=== PATIENT | female | born 1970 | race Caucasian/White ===

== ENCOUNTER 2024-03-04 14:01 | Emergency (ER) | payer MEDICAID ==
[~2024-03-04] VITALS: Ht 165.1 cm; Wt 74.8 kg
[2024-03-04 14:07] VITALS: BP_SYST 169; PULSE 104; RESP 18; TEMP 98.3; O2SAT 98
[2024-03-04 16:06] LABS: CALCIUM 8.8 mg/dL (8.4-11.0); CREATININE 0.98 mg/dL (0.55-1.30); POTASSIUM 3.9 mmol/L (3.5-5.1)
[2024-03-04 16:10] LABS: BASOPHILS # (AUTO) 0.1 K/uL (0.0-0.2); BASOPHILS % (AUTO) 1.5 % (0.0-2.0); EOSINOPHILS # (AUTO) 0.1 K/uL (0.0-0.4); HEMATOCRIT 24.7 % (36-48); HEMOGLOBIN 7.3 g/dL (12.0-16.0); LYMPHOCYTES # (AUTO) 2.2 K/uL (1.0-5.5); LYMPHOCYTES % (AUTO) 33.4 % (20.5-51.5); MEAN CORPUSCULAR HEMOGLOBIN 19 pg (27-31); MEAN CORPUSCULAR HGB CONC 30 % (32-36); MEAN CORPUSCULAR VOLUME 66 fL (79.0-98.0); MONOCYTES # (AUTO) 0.4 K/uL (0.0-1.0); MONOCYTES % (AUTO) 6.6 % (1.7-9.3); NEUTROPHILS # (AUTO) 3.8 K/uL (1.8-7.7); NEUTROPHILS % (AUTO) 56.5 % (40.0-70.0); PLATELET COUNT (AUTO) 375 K/uL (130-430); RED BLOOD CELL COUNT(AUTO) 3.77 MIL/uL (4.2-6.2); RED CELL DISTRIBUTION WIDTH 23.1 % (9.0-15.0); WHITE BLOOD COUNT (AUTO) 6.7 K/uL (4.8-10.8)
[2024-03-04] MEDS ORDERED: NEOM15CR TP (16:48)
[2024-03-04 17:13] VITALS: BP_SYST 152; PULSE 104; RESP 18; TEMP 98.3; O2SAT 98
== END 2024-03-04 16:30 | disposition home or self-care (01) ==
LOC: SED 14:01
DX: S51.832A Puncture wound without foreign body of left forearm, initial encounter (principal); E11.9 Type 2 diabetes mellitus without complications; W57.XXXA Bitten or stung by nonvenomous insect and other nonvenomous arthropods, initial encounter; Y93.89 Activity, other specified; Y92.89 Other specified places as the place of occurrence of the external cause; Y99.8 Other external cause status
CPT/HCPCS: 36415; 73090; 80048; 83605; 85025; 99284

== ENCOUNTER 2024-07-13 06:54 | Emergency (ER) | payer MEDICAID ==
[~2024-07-13] VITALS: Ht 162.6 cm; Wt 81.6 kg
[~2024-07-13 06:54] MED LIST: NEOM15CR TP
[2024-07-13 07:18] VITALS: BP_SYST 147; PULSE 120; RESP 18; TEMP 98.3; O2SAT 98
[2024-07-13 07:51] LABS: BASOPHILS # (AUTO) 0.1 K/uL (0.0-0.2); BASOPHILS % (AUTO) 1.1 % (0.0-2.0); EOSINOPHILS # (AUTO) 0.1 K/uL (0.0-0.4); EOSINOPHILS % (AUTO) 0.5 % (0.0-4.0); HEMATOCRIT 26.4 % (36-48); HEMOGLOBIN 7.7 g/dL (12.0-16.0); LYMPHOCYTES # (AUTO) 2.1 K/uL (1.0-5.5); LYMPHOCYTES % (AUTO) 15.6 % (20.5-51.5); MEAN CORPUSCULAR HEMOGLOBIN 19 pg (27-31); MEAN CORPUSCULAR HGB CONC 29 % (32-36); MEAN CORPUSCULAR VOLUME 65 fL (79.0-98.0); MONOCYTES # (AUTO) 0.9 K/uL (0.0-1.0); NEUTROPHILS # (AUTO) 10.2 K/uL (1.8-7.7); NEUTROPHILS % (AUTO) 75.8 % (40.0-70.0); PLATELET COUNT (AUTO) 356 K/uL (130-430); RED BLOOD CELL COUNT(AUTO) 4.06 MIL/uL (4.2-6.2); RED CELL DISTRIBUTION WIDTH 20.4 % (9.0-15.0); WHITE BLOOD COUNT (AUTO) 13.5 K/uL (4.8-10.8)
[2024-07-13 08:37] LABS: INR 1.1 (0.8-1.2); PROTHROMBIN TIME 11.7 SECS (9.5-12.5)
[2024-07-13 08:57] LABS: CALCIUM 8.4 mg/dL (8.4-11.0); CREATININE 1.12 mg/dL (0.55-1.30); POTASSIUM 3.1 mmol/L (3.5-5.1)
[2024-07-13] MEDS ORDERED: CLIN300C3 PO (09:18)
[2024-07-13] MEDS ORDERED: IBUP-1969 PO (09:18)
[2024-07-13] MEDS: HYDROcodone/ACETAMIN 10-325 MG TAB PO ONE (09:34)
[2024-07-13 09:40] VITALS: BP_SYST 147; PULSE 120; RESP 18; TEMP 98.3; O2SAT 98
[2024-07-13 10:37] LABS: ANISOCYTOSIS 1+; HYPOCHROMASIA 2+
== END 2024-07-13 07:18 | disposition home or self-care (01) ==
LOC: SED 06:54
DX: L03.113 Cellulitis of right upper limb (principal); R51.9 Headache, unspecified; Z79.899 Other long term (current) drug therapy
CPT/HCPCS: 36415; 70450-TC; 80048; 83605; 85025; 85610; 85730; 99284